=== PATIENT | male | born 1935 | race Caucasian/White ===

== ENCOUNTER → 2017-02-27 | Outpatient (CLI) | payer MEDICARE | END | disposition home or self-care (01) | LOC: PCVCCLINIC 16:39 | PROVIDERS: ATTEND Internal Medicine Cardiovascular Disease | DX: I48.2 Chronic atrial fibrillation (principal); I50.9 Heart failure, unspecified; E78.00 Pure hypercholesterolemia, unspecified; R07.89 Other chest pain; I44.7 Left bundle-branch block, unspecified; Z87.891 Personal history of nicotine dependence | CPT/HCPCS: 80061; 93005; G0463 ==

== ENCOUNTER → 2017-08-04 | Outpatient (CLI) | payer MEDICARE ==
--- NOTE | 2017-08-04 15:15 | PCVCIMAG ---
APPROVED REPORT Study performed: 08/04/2017 14:26:13 EXAM: Comprehensive 2D, Doppler, and color-flow Echocardiogram Patient Location: Echo lab Room #: 3Status: routine BSA: 2.33 HR: 84 bpmBP: 98/62 mmHg Rhythm: Pacemaker Other Information Study Quality: Adequate Indications Aortic Valve Disease Congestive Heart Failure Atrial Fibrillation Dyspnea Pacemaker Cardiomyopathy 2D Dimensions IVSd: 7.92 (7-11mm)LVOT Diam: 21.77 (18-24mm) LVDd: 65.71 mm PWd: 9.19 (7-11mm)Ascending Ao: 42.83 (22-36mm) LVDs: 63.52 (25-40mm) Left Atrium: 55.64 (27-40mm) Aortic Root: 32.89 mm LV Single Plane 4CH: 29.18 % LV Single Plane 2CH: 17.00 %[place]'s LVEF: 23.09 % Biplane EF: 23.7 % Volumes Left Atrial Volume (Systole) Single Plane 4CH: 109.03 mLSingle Plane 2CH: 87.95 mL Biplane LA Volume: 111.00 mLLA ESV Index: 48.00 mL/m2 Aortic Valve AoV Peak Bernard.: 1.98 m/s AO Peak Gr.: 20.22 mmHgLVOT Max P.53 mmHg AO Mean Gr.: 9.15 mmHgLVOT Mean P.65 mmHg AO V2 Mean: 1.46 m/sLVOT Max V: 0.89 m/s AO V2 VTI: 34.28 cm MARY (VTI): 1.64 [id number] V1 VTI: 15.16 cm MARY Vmax: 1.68 cm2 AI Vmax: 3.66 m/s AI [place]: 2.55 m/s2 AI PHT: 423.53 ms Mitral Valve MV E Max Bernard.: 1.25 m/s MV PHT: 40.16 ms MVA (PHT): 5.48 cm2 IVRT: 72.66 ms TDI E/Medial E': 25.00 Medial E' Bernard.: 0.05 m/s Pulmonary Valve PV Peak Bernard.: 0.66 m/sPV Peak Gr.: 1.74 mmHg Tricuspid Valve TR Peak Bernard.: 3.04 m/s TR Peak Gr.: 36.96 mmHg TV Vmax: 0.94 m/sPA Pressure: 47.00 mmHg Left Ventricle Left ventricle is severely dilated. There is normal LV segmental wall motion. There is normal left ventricular wall thickness. Left ventricular systolic function is severely decreased. LVEF is 20-25%. This study is not technically sufficient to allow evaluation of the LV diastolic function due to atrial fibrillation. Right Ventricle Right ventricle is mild to moderately dilated. The right ventricular systolic function is normal. Atria Left atrium is severely dilated. Right atrium is severely dilated. Aortic Valve Aortic valve is trileaflet. Aortic valve leaflets are sclerotic with decreased opening. Moderate aortic regurgitation. Mild aortic stenosis. Highest mean aortic valve gradient is 9.2 mmHg. Peak aortic valve gradient is 15.6 mmHg. Calculated MARY by the continuity equation is1.7 cm2. Mitral Valve Mitral valve leaflets are mildly thickened. Severe mitral regurgitation. No evidence of mitral valve stenosis. Tricuspid Valve The tricuspid valve is normal in structure. Severe tricuspid regurgitation. Pulmonic Valve The pulmonary valve is normal in structure. There is mild-moderate pulmonic valvular regurgitation. Great Vessels The aortic root is normal in size. The ascending aorta is normal in size. IVC is normal in size and collapses with >50% inspiration Pericardium There is no pericardial effusion. There is no pleural effusion. <Conclusion> Left ventricle is severely dilated. LVEF is 20-25%. This study is not technically sufficient to allow evaluation of the LV diastolic function due to atrial fibrillation. Right ventricle is mild to moderately dilated. The right ventricular systolic function is normal. Left atrium is severely dilated. Right atrium is severely dilated. Aortic valve is trileaflet. Aortic valve leaflets are sclerotic with decreased opening. Moderate aortic regurgitation. Mild aortic stenosis. Highest mean aortic valve gradient is 9.2 mmHg. Peak aortic valve gradient is 15.6 mmHg. Calculated MARY by the continuity equation is1.7 cm2. Severe mitral regurgitation. Severe tricuspid regurgitation. There is mild-moderate pulmonic valvular regurgitation. There is no pericardial effusion.
== END ==
LOC: PCVCIMAG 13:01
PROVIDERS: ATTEND Internal Medicine Cardiovascular Disease
DX: I25.10 Atherosclerotic heart disease of native coronary artery without angina pectoris (principal); I08.3 Combined rheumatic disorders of mitral, aortic and tricuspid valves; I11.0 Hypertensive heart disease with heart failure; I50.9 Heart failure, unspecified; R06.00 Dyspnea, unspecified; I42.8 Other cardiomyopathies; I48.2 Chronic atrial fibrillation; G47.33 Obstructive sleep apnea (adult) (pediatric); Z95.810 Presence of automatic (implantable) cardiac defibrillator; Z87.891 Personal history of nicotine dependence; Z79.899 Other long term (current) drug therapy
CPT/HCPCS: 80061; 93282; 93306; G0463

== ENCOUNTER → 2017-09-27 | Outpatient (CLI) | payer MEDICARE | END | disposition home or self-care (01) | LOC: PCVCCLINIC 11:49 | PROVIDERS: ATTEND Internal Medicine Cardiovascular Disease | DX: I10 Essential (primary) hypertension (principal); I35.0 Nonrheumatic aortic (valve) stenosis; I42.8 Other cardiomyopathies; E78.00 Pure hypercholesterolemia, unspecified; I48.91 Unspecified atrial fibrillation; R94.31 Abnormal electrocardiogram [ECG] [EKG]; I45.10 Unspecified right bundle-branch block; Z87.891 Personal history of nicotine dependence; Z95.810 Presence of automatic (implantable) cardiac defibrillator; Z79.899 Other long term (current) drug therapy | CPT/HCPCS: 80061; 93005; G0463 ==

== ENCOUNTER → 2017-11-28 | Outpatient (CLI) | payer MEDICARE | END | disposition home or self-care (01) | LOC: PCVCCLINIC 15:03 | DX: I42.8 Other cardiomyopathies (principal); I10 Essential (primary) hypertension; I48.2 Chronic atrial fibrillation; I35.0 Nonrheumatic aortic (valve) stenosis; R94.31 Abnormal electrocardiogram [ECG] [EKG]; Z95.810 Presence of automatic (implantable) cardiac defibrillator; Z87.891 Personal history of nicotine dependence; Z79.899 Other long term (current) drug therapy | CPT/HCPCS: 93005; G0463 ==

== ENCOUNTER → 2018-09-03 | Outpatient (CLI) | payer MEDICARE ==
--- NOTE | 2018-09-03 10:47 | PCVCIMAG ---
APPROVED REPORT Study performed: 09/03/2018 09:38:45 EXAM: Comprehensive 2D, Doppler, and color-flow Echocardiogram Patient Location: Echo lab Status: routine BSA: 2.33 HR: 72 bpmBP: 104/80 mmHg Rhythm: NSR Other Information Study Quality: Good Risk Factors: Cardiac Risk Factors: HTN, Hyperlipidemia Indications Aortic Valve Disease Atrial Fibrillation Hypertension/HDD NICM, AICD, MEGAN 2D Dimensions IVSd: 16.08 (7-11mm)LVOT Diam: 25.34 (18-24mm) LVDd: 63.83 mm PWd: 12.96 (7-11mm)Ascending Ao: 47.55 (22-36mm) LVDs: 66.22 (25-40mm) Left Atrium: 60.76 (27-40mm) Aortic Root: 33.93 mm LV Single Plane 4CH: 24.34 % LV Single Plane 2CH: 14.54 % Biplane EF: 20.1 % Volumes Left Atrial Volume (Systole) Single Plane 4CH: 144.48 mLSingle Plane 2CH: 121.82 mL LA ESV Index: 58.00 mL/m2 Aortic Valve AoV Peak Bernard.: 2.48 m/s AO Peak Gr.: 24.59 mmHgLVOT Max P.27 mmHg AO Mean Gr.: 14.06 mmHg AO V2 Mean: 1.81 m/sLVOT Max V: 0.74 m/s AO V2 VTI: 47.03 cm MARY Vmax: 1.51 cm2 AI Vmax: 3.30 m/s AI [place]: 2.74 m/s2 AI PHT: 383.18 ms Tricuspid Valve TR Peak Bernard.: 3.20 m/s TR Peak Gr.: 40.92 mmHg Left Ventricle Left ventricle is dilated. There is normal LV segmental wall motion. There is normal left ventricular wall thickness. Left ventricular systolic function is severely decreased. LVEF is 20%. This study is not technically sufficient to allow evaluation of the LV diastolic function due to atrial fibrillation. Right Ventricle The right ventricle is normal size. The right ventricular systolic function is normal. Atria Left atrium is severely dilated. Right atrium is severely dilated. Aortic Valve Aortic valve is calcified. Mild to moderate aortic regurgitation. Aortic valve peak gradient is 24mmHg. Mean is 14mmHg. Aortic valve area is 1.5cm2. Moderate Aortic Stenosis. Mitral Valve The mitral valve is normal in structure. Mild to moderate mitral regurgitation. No evidence of mitral valve stenosis. Tricuspid Valve The tricuspid valve is normal in structure. Mild tricuspid regurgitation. Pulmonary artery pressure is 50mmHg. Pulmonic Valve The pulmonary valve is normal in structure. Trace pulmonic regurgitation. Great Vessels The aortic root is normal in size. 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 The IVC is dilated. Pericardium There is no pericardial effusion. <Conclusion> Left ventricle is dilated. Left ventricular systolic function is severely decreased. LVEF is 20%. This study is not technically sufficient to allow evaluation of the LV diastolic function due to atrial fibrillation. The right ventricle is normal size. Left atrium is severely dilated. Right atrium is severely dilated. Aortic valve is calcified. Mild to moderate aortic regurgitation. Aortic valve peak gradient is 24mmHg. Mean is 14mmHg. Aortic valve area is 1.5cm2. Moderate Aortic Stenosis. Mild to moderate mitral regurgitation. Mild tricuspid regurgitation. Pulmonary artery pressure is 50mmHg. The aortic root is normal in size. The IVC is dilated. There is no pericardial effusion.
== END | disposition home or self-care (01) ==
LOC: PCVCIMAG 09:36
PROVIDERS: ATTEND Internal Medicine Cardiovascular Disease
DX: I08.1 Rheumatic disorders of both mitral and tricuspid valves (principal); I11.0 Hypertensive heart disease with heart failure; I50.9 Heart failure, unspecified; E78.00 Pure hypercholesterolemia, unspecified; I10 Essential (primary) hypertension; G47.33 Obstructive sleep apnea (adult) (pediatric); Z95.810 Presence of automatic (implantable) cardiac defibrillator; I48.2 Chronic atrial fibrillation; Z87.891 Personal history of nicotine dependence
CPT/HCPCS: 93306; G0463

== ENCOUNTER → 2019-01-03 | Outpatient (CLI) | payer MEDICARE | END | disposition home or self-care (01) | LOC: PCVCCLINIC 15:10 | PROVIDERS: ATTEND Internal Medicine Cardiovascular Disease | DX: I48.2 Chronic atrial fibrillation (principal); I42.9 Cardiomyopathy, unspecified; E78.00 Pure hypercholesterolemia, unspecified; I08.3 Combined rheumatic disorders of mitral, aortic and tricuspid valves; G47.33 Obstructive sleep apnea (adult) (pediatric); I11.0 Hypertensive heart disease with heart failure; I50.9 Heart failure, unspecified; I48.91 Unspecified atrial fibrillation; Z95.810 Presence of automatic (implantable) cardiac defibrillator; Z87.891 Personal history of nicotine dependence; Z88.8 Allergy status to other drugs, medicaments and biological substances; Z79.899 Other long term (current) drug therapy | CPT/HCPCS: 36415; 80061; 93005; G0463 ==

== ENCOUNTER → 2019-03-11 | Outpatient (CLI) | payer MEDICARE | END | disposition home or self-care (01) | LOC: PCVCCLINIC 11:00 | PROVIDERS: ATTEND Internal Medicine Cardiovascular Disease | DX: I48.2 Chronic atrial fibrillation (principal); I42.8 Other cardiomyopathies; E78.00 Pure hypercholesterolemia, unspecified; C44.612 Basal cell carcinoma of skin of right upper limb, including shoulder; Z88.8 Allergy status to other drugs, medicaments and biological substances | CPT/HCPCS: 93282; G0463 ==